=== PATIENT | female | born 1990 | race African-American/Black ===

== ENCOUNTER 2016-04-21 21:06 | Emergency (ER) | payer OTHER ==
[2016-04-21 21:23] VITALS: BP 137/90; PULSE 110; TEMP 99.4; BMI 20.7
[2016-04-21] MEDS ORDERED: CEPHALEXIN MONOHYDRATE 500 MG CAPSULE (UD) PO ONE (22:04)
[2016-04-21] MEDS ORDERED: CEPHALEXIN MONOHYDRATE 500 MG CAPSULE (UD) ONE (22:06)
--- NOTE | 2016-04-21 22:07 | PDOC ---
History of Present Illness - General Chief Complaint: Wound Stated Complaint: BODYACHES/HEADACHE Time Seen by Provider: 04/21/16 21:41 History Source: Patient Exam Limitations: No Limitations - History of Present Illness Timing/Duration: other (3d) Associated Symptoms: reports: denies symptoms Past History - Travel Traveled outside of the country in the last 30 days: No Close contact w/someone who was outside of country & ill: No - Past Medical History Allergies/Adverse Reactions: Allergies Allergy/AdvReac Type Severity Reaction Status Date / Time No Known Allergies Allergy Verified 04/21/16 21:19 Home Medications: Ambulatory Orders No Home Medications 0 dose .ROUTE UTDICT 03/14/12 Other medical history: denies - Reproductive History (#): 1 Para: 0 Therapeutic (s) & number: No Spontaneous : 0 - Immunization History Immunization Up to Date: Yes - Psycho/Social/Smoking Cessation Hx Anxiety: No Suicidal Ideation: No Smoking Status: No Smoking History: Never smoked Number of Cigarettes Smoked Daily: 0 Information on smoking cessation initiated: No Hx Alcohol Use: No Drug/Substance Use Hx: No Review of Systems - Review of Systems Able to Perform ROS?: Yes Comments:: 04/21/16 22:07 CONSTITUTIONAL: Absent: fever, chills, diaphoresis, generalized weakness, malaise, loss of appetite HEENT: Absent: rhinorrhea, nasal congestion, throat pain, throat swelling, difficulty swallowing, mouth swelling, ear pain, eye pain, visual Changes CARDIOVASCULAR: Absent: chest pain, loss of consciousness, palpitations, irregular heart rate, peripheral edema RESPIRATORY: Absent: cough, shortness of breath, dyspnea with exertion, orthopnea, wheezing, stridor, hemoptysis GASTROINTESTINAL: Absent: abdominal pain, abdominal distension, nausea, vomiting, diarrhea, constipation, melena, hematochezia GENITOURINARY: Absent: dysuria, frequency, urgency, hesitancy, hematuria, flank pain, genital pain MUSCULOSKELETAL: Absent: myalgia, arthralgia, joint swelling SKIN: Perineum/left majora pain Absent: rash, itching, pallor HEMATOLOGIC/IMMUNOLOGIC: Absent: easy bleeding, easy bruising, lymphadenopathy, frequent infections ENDOCRINE: Absent: unexplained weight gain, unexplained weight loss, heat intolerance, cold intolerance NEUROLOGIC: Absent: headache, focal weakness or paresthesias, dizziness, unsteady gait, seizure, mental status changes, bladder or bowel incontinence PSYCHIATRIC: Absent: anxiety, depression, suicidal or homicidal ideation, hallucinations. Is the patient limited Stateless proficient: No *Physical Exam - Vital Signs Last Vital Signs Temp Pulse Resp BP Pulse Ox 99.4 F 110 H 20 137/90 100 04/21/16 21:19 04/21/16 21:19 04/21/16 21:19 04/21/16 21:19 04/21/16 21:19 - Physical Exam Comments: 04/21/16 22:09 GENERAL: Well developed, well nourished. Awake and alert. No acute distress. HEENT: Normocephalic, atraumatic. PERRLA, EOMI. No conjunctival pallor. Sclera are non- icteric. Moist mucous membranes. Oropharynx is clear. NECK: Supple. Full ROM. No JVD. Carotid pulses 2+ and symmetric, without bruits. No thyromegaly. No lymphadenopathy. CARDIOVASCULAR: Regular rate and rhythm. No murmurs, rubs, or gallops. Distal pulses are 2+ and symmetric. PULMONARY: No evidence of respiratory distress. Lungs clear to auscultation bilaterally. No wheezing, rales or rhonchi. ABDOMINAL: Soft. Non-tender. Non-distended. No rebound or guarding. No organomegaly. Normoactive bowel sounds. MUSCULOSKELETAL Normal range of motion at all joints. No bony deformities or tenderness. No CVA tenderness. EXTREMITIES: No cyanosis. No clubbing. No edema. No calf tenderness. SKIN: Perimeum: left slight erythema with 2cm induration; left labia majora: 2cm indurated with pinpoint drainage Warm and dry. Normal capillary refill. No rashes. No jaundice. NEUROLOGICAL: Alert, awake, appropriate. Cranial nerves 2-12 intact. No deficits to light touch and temperature in face, upper extremities and lower extremities. No motor deficits in the in face, upper extremities and lower extremities. Normoreflexic in the upper and lower extremities. Normal speech. Toes are down- going bilaterally. Gait is normal without ataxia. PSYCHIATRIC: Cooperative. Good eye contact. Appropriate mood and affect. *DC/Admit/Observation/Transfer Diagnosis at time of Disposition: Abscess - Discharge Dispostion Disposition: HOME Condition at time of disposition: Stable - Referrals Referrals: Georges Moreira MD [Staff Physician] - - Patient Instructions Additional Instructions: Warm soaks Take antibiotics as prescribed: Keflex 500 mg, take one tablet twice a day for 7 days Follow-up with your nipple threader or the one listed on his discharge sheet As discussed, I have cultured one of your wound and the results should return in approximately 2-3 days. [phone]; please call us for the results after Wednesday Progress Note - Progress Note Progress Note: 25-year-old female presents to the emergency department complaining of pain to the left labia majora and perineum. Patient states she noticed slight discharge from her skin after shaving 3 days ago. Patient denies any fever, chills, vaginal discharge or urinary symptoms such as urgency/frequency/hesitancy, hematuria. Left labia majora: cultured
== END 2016-04-21 22:18 | disposition home or self-care (01) ==
LOC: JERFT 21:06
DX: N76.4 Abscess of vulva (principal)
CPT/HCPCS: 87070; 87186; 87205; 99281-25

== ENCOUNTER 2019-05-18 12:14 | Emergency (ER) | payer OTHER ==
[2019-05-18 12:24] VITALS: BP 101/70; PULSE 96; TEMP 99.1; BMI 24.0
[2019-05-18] MEDS ORDERED: ACETAMINOPHEN 325 MG TABLET (FP) PO ONE (12:25)
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
== END 2019-05-18 14:24 | disposition home or self-care (01) ==
LOC: JERFT 12:14
DX: G44.89 Other headache syndrome (principal); V43.52XA Car driver injured in collision with other type car in traffic accident, initial encounter; Y93.89 Activity, other specified; Y92.410 Unspecified street and highway as the place of occurrence of the external cause
CPT/HCPCS: 70450-TC; 99281-25

== ENCOUNTER 2022-02-10 13:25 | Emergency (ER) | payer OTHER ==
[2022-02-10 14:08] VITALS: BP 97/57; PULSE 62; RESP 16; TEMP 98.1; BMI 22.3
[2022-02-10] MEDS ORDERED: IBUPROFEN 600 MG TABLET (FP) PO ONE ×2 (14:42→15:00)
== END 2022-02-10 15:01 | disposition home or self-care (01) ==
LOC: JERFT 13:25
DX: S06.0X0A Concussion without loss of consciousness, initial encounter (principal); W20.8XXA Other cause of strike by thrown, projected or falling object, initial encounter
CPT/HCPCS: 99283-25